=== PATIENT | female | born 1990 | race African-American/Black ===

== ENCOUNTER 2019-02-28 08:00 | Day surgery (SDC) | payer OTHER ==
[2019-02-28] MEDS ORDERED: SCOPOLAMINE HYDROBROMIDE PATCH TD ONE (08:14)
[2019-02-28 08:30] LABS: Absolute Lymphocytes (CBC) 2.2 K/uL (0.7-4.9); Basophils % 0.6 % (0-1.3); Hematocrit 37.6 % (36.0-45.0); Lymphocytes % 39.4 % (15.3-44.8); MPV 8.1 fL (7.6-11.3); RBC Red Blood Cell Count 4.03 M/uL (3.86-4.86)
[2019-02-28] MEDS ORDERED: Ringers Lactate 1,000 ML IV ONE ×3 (08:32→13:53)
[2019-02-28] MEDS ORDERED: CEFAZOLIN/SWI 1gm 1 GM/10 ML SYR ONE (08:33)
[2019-02-28] MEDS ORDERED: PROPOFOL 200 MG/20 ML VIAL IV ONE (08:35)
[2019-02-28] MEDS ORDERED: ROCURONIUM 50 MG/5 ML VIAL IV ONE ×3 (08:35→11:58)
[2019-02-28] MEDS ORDERED: LIDOCAINE 2% MPF 5 ML VIAL ONE (08:35)
[2019-02-28] MEDS ORDERED: MIDAZOLAM HCL 2 MG/2 ML INJ ONE (08:35)
[2019-02-28] MEDS ORDERED: FENTANYL CITR 250 MCG/5 ML ONE (08:35)
[2019-02-28] MEDS ORDERED: ONDANSETRON 4 MG/2 ML VIAL ONE ×2 (08:42→14:35)
[2019-02-28] MEDS ORDERED: NS 0.9% VIAL 20 ML ONE ×2 (08:44→08:45)
[2019-02-28] MEDS ORDERED: Phenylephrine HCl 10 MG/ML 1 ML VIAL ONE (08:44)
[2019-02-28] MEDS ORDERED: GENTAMICIN SULF 80 MG/2ML INJ ONE (08:45)
[2019-02-28] MEDS ORDERED: CEFAZOLIN SODIUM 1 GM/VIAL ONE (08:45)
[2019-02-28] MEDS ORDERED: BACITRACIN 50000 UNIT VIAL ONE (08:45)
[2019-02-28] MEDS ORDERED: GLYCOPYRROLATE 0.2 MG/ML SYR ONE ×3 (09:34→13:20)
[2019-02-28] MEDS ORDERED: NEOSTIGMINE 1 MG/ML -10 ML VIAL ONE (10:24)
[2019-02-28] MEDS: Ringers Lactate 1,000 ML IV ONE ×6 (10:25→15:15)
[2019-02-28] MEDS ORDERED: MEPERIDINE HCL 25 MG/0.5 ML ONE (13:21)
[2019-02-28] MEDS ORDERED: KETOROLAC 30 MG/ML INJ ONE (13:22)
[2019-02-28] MEDS ORDERED: Mastisol Adhesive Liq ONE (13:34)
[2019-02-28] MEDS: HYDROMORPHONE HCL 2 MG/ML inj ONE ×3 (14:38→15:20)
[2019-02-28 14:50] VITALS: TEMP 98.3; O2SAT 99
[2019-02-28 15:43] VITALS: BP 131/79
[2019-02-28] MEDS ORDERED: CODEINE 30MG/APAP 300MG TAB ONE (16:15)
[2019-02-28] MEDS ORDERED: METOCLOPRAMIDE 10 MG/2mL INJ ONE (16:49)
--- NOTE | 2019-03-01 01:46 | OP ---
Surgeon: Cole Peterson MD Engagement Lead: Dawson. Preoperative Diagnosis: Breast descent. Postoperative Diagnosis: Breast descent. Procedure: Breast lift. Anesthesia: General. Description Of Procedure: After satisfactory induction of general anesthesia, the chest was prepped with DuraPrep and dry sterile drapes applied in the usual manner. A 42 template was used to outline the right and left areolas. Incision was made around the areola and then a transverse curvilinear in cision was made. The intervening skin was de-epithelialized with a dermabrader or EpiCut. Flaps wer e elevated 1 cm thick towards the sternum, clavicle, anterior axillary line on both breasts. Then th e inferior incision was made and the de-epithelized tissue was formed into a cone. Straps were eleva randy at the base of the cone at 3 o'clock, 1:30, and 12 o'clock position. Straps were then woven in a nd out the pectoralis major muscle, back to the base of the cone and tied to themselves with 2-0 PDS. This was done from the 12 o'clock and 1:30 straps. At 3 o'clock, the strap was sewn over the canseco um with 2-0 Ethibond. Left side was done and . Patient was sat up. Site for new nipple-a reolar complex was marked out at an 8 cm sunday. The patient then had the fascial suture wa s placed by the employee relations assistant surgeon down to Bhavana fascia inferiorly down to the periosteum of the rib sewn with 2-0 Vicryl on both breasts. After this was done, the wound was irrigated with antibiotic s olution. 10 MARY was brought out and then the wound closed in layers, 3-0 Vicryl subcu, 3-0 PDS runnin g subcuticular tied in the vertical meridian breast. Then, the patient was sat up again. Site for n ipple-areolar complex was marked out. The tissue was incised and then the nipple-areolar complex ___ followed 4-0 PDS running subcuticular. Dressings consisted of tincture of benzoin, Steri- Strips, 5 x 5's, fluffs and Milan wrap. Patient tolerated the procedure well and returned to Recovery. ASHER/WILBUR Voice ID: [id number] Report ID: [id number]
== END 2019-02-28 17:37 | disposition home or self-care (01) ==
LOC: OR 08:00
PROVIDERS: ATTEND Specialist
PROC: 0H0V0ZZ Alteration of Bilateral Breast, Open Approach (ICD-10-PCS; principal; 2019-02-28 09:00)
DX: N64.81 Ptosis of breast (principal); N62 Hypertrophy of breast; I34.1 Nonrheumatic mitral (valve) prolapse; E07.9 Disorder of thyroid, unspecified
CPT/HCPCS: 85025; 36415; 81025; 88305; 85018; 85014; 19316; J2704; J2710; J2765; J2370; J1580; J2250; J1170; J3010; J2175; J0690 ×2; J7120 ×5; J2405 ×2